=== PATIENT | female | born 1950 | race Hispanic/Latino ===

== ENCOUNTER 2025-02-08 15:58 | Outpatient (CLI) | payer BC | END 2025-02-08 15:59 | disposition home or self-care (01) | LOC: SCSRAD 15:58 | PROVIDERS: ATTEND Student in an Organized Health Care Education/Training Program | DX: M54.6 Pain in thoracic spine (principal); M47.814 Spondylosis without myelopathy or radiculopathy, thoracic region | CPT/HCPCS: 72072 ==